=== PATIENT | female | born 1975 | race Two or more races ===

== ENCOUNTER 2023-11-09 20:26 | Emergency (ER) | payer OTHER ==
[~2023-11-09] VITALS: Ht 165.1 cm; Wt 75.1 kg
[2023-11-09] MEDS: GLUCAGON EMERG KIT 1mg/1ml IM ONE (22:08)
[2023-11-10 00:17] VITALS: BP 138/83; PULSE 70; RESP 17; TEMP 97.4; O2SAT 98
== END 2023-11-10 00:19 | disposition home or self-care (01) ==
LOC: ER 20:26
DX: T18.8XXA Foreign body in other parts of alimentary tract, initial encounter (principal); R51.9 Headache, unspecified; W44.8XXA Other foreign body entering into or through a natural orifice, initial encounter; Y93.89 Activity, other specified; Y92.89 Other specified places as the place of occurrence of the external cause; Y99.8 Other external cause status
CPT/HCPCS: 70490; 96372; 99285; J1610